=== PATIENT | female | born 1970 | race Caucasian/White ===

== ENCOUNTER 2021-01-15 12:12 | Emergency (ER) | payer MEDICAID ==
[~2021-01-15] VITALS: Ht 165.1 cm; Wt 77.0 kg
[2021-01-15] MEDS ORDERED: OLANZAPINE 5MG TABLET ODT PO ONE (16:15)
[2021-01-15 16:38] VITALS: BP 138/75
== END 2021-01-15 16:46 | disposition home or self-care (01) ==
LOC: ER 12:12
DX: F41.9 Anxiety disorder, unspecified (principal); F99 Mental disorder, not otherwise specified
CPT/HCPCS: 99283

== ENCOUNTER 2021-02-06 11:20 | Emergency (ER) | payer MEDICAID ==
[~2021-02-06] VITALS: Ht 165.1 cm; Wt 68.0 kg
[2021-02-06] MEDS ORDERED: LIDOCAINE HCL/EPINEPHRINE 1%-EPI 1:100,000 20 ML VIAL INFIL ONE (11:30)
[2021-02-06] MEDS ORDERED: ACETAMINOPHEN 325MG TABLET PO ONE ×2 (11:30→17:00)
[2021-02-06] MEDS ORDERED: TETANUS, DIPHTHERIA, PERTUSSIS VAC/PF 0.5ML (>10YR OLD) IM ONE (11:30)
[2021-02-06 17:15] VITALS: BP 124/74
== END 2021-02-06 17:25 | disposition home or self-care (01) ==
LOC: ER 11:20
DX: S01.01XA Laceration without foreign body of scalp, initial encounter (principal); T51.0X1A Toxic effect of ethanol, accidental (unintentional), initial encounter; G92.8 Other toxic encephalopathy; F10.129 Alcohol abuse with intoxication, unspecified; Y90.9 Presence of alcohol in blood, level not specified; Z71.41 Alcohol abuse counseling and surveillance of alcoholic; W01.198A Fall on same level from slipping, tripping and stumbling with subsequent striking against other object, initial encounter; Y93.89 Activity, other specified; Y92.018 Other place in single-family (private) house as the place of occurrence of the external cause
CPT/HCPCS: 12002; 70450; 90471; 90715; 99284; J3490; Z7610